=== PATIENT | male | born 1990 | race Caucasian/White ===

== ENCOUNTER 2017-10-12 16:56 | Emergency (ER) | payer MEDICAID ==
[~2017-10-12] VITALS: Ht 162.6 cm; Wt 64.4 kg
[~2017-10-12 16:56] MED LIST: BENZ1TAB42 PO; CLON0.5T PO; COL250 PO; RISP1TAB1 PO; TRAZ-286 PO
--- NOTE | 2017-10-12 17:38 | NUR ---
27/M BROUGHT IN BY [employer] FROM [facility]. PT POUNDING ON TABLE, INJURED RIGHT HAND---MILD DISCOLORATION SWELLING TO HAND. +2 RADIAL PULSE < 3 SEC CAP REFILL HX---ANGELMAN SYNDROME, SEVERE INTELLECTUAL DISABILITY, ATAXIC, CP, MICROCEPHALY, SEIZURE, INSOMNIA, ANXIETY, RX----CLONAZEPAM, BENZTROPINE, TRAZODONE, RISPERIDONE, COLACE, BISACODYL, TYLENOL, BENADRYL, ENEMA, KAOPECTATE, LACTULOSE, SILTUSSIN-DM, PT NON VERBAL. PT ACTING NEUROLOGICAL BASELINE.
--- NOTE | 2017-10-12 18:09 | NUR ---
X RAY AT BEDSIDE.
--- NOTE | 2017-10-12 18:17 | NUR ---
Patient being evaluated by DR GARCIA at bedside.
--- NOTE | 2017-10-12 18:23 | NUR ---
WINDYING& SPLINT BY CLEMENCIA RAMESH
--- NOTE | 2017-10-12 18:30 | NUR ---
Patient discharged with v/s stable. Written and verbal after care instructions given and explained. Patient verbalized understanding. Wheel Chair Assisted with by caregiver. All questions addressed prior to discharge. Advised to follow up with PMD.
== END 2017-10-12 18:30 | disposition home or self-care (01) ==
LOC: MED 16:56
DX: S62.320A Displaced fracture of shaft of second metacarpal bone, right hand, initial encounter for closed fracture (principal); W22.03XA Walked into furniture, initial encounter; Y93.89 Activity, other specified; Y99.8 Other external cause status; Y92.89 Other specified places as the place of occurrence of the external cause; Z88.6 Allergy status to analgesic agent
CPT/HCPCS: 73130; 99284